=== PATIENT | male | born 1955 | race Caucasian/White ===

== ENCOUNTER 2018-06-17 11:32 | Emergency (ER) | payer MEDICARE, OTHER ==
[~2018-06-17] VITALS: Ht 180.3 cm; Wt 125.0 kg
[2018-06-17] MEDS ORDERED: LEVOTHYROXIN75 MCG PO (12:28)
[2018-06-17] MEDS ORDERED: LISINOPRIL10 MG PO (12:28)
[2018-06-17] MEDS ORDERED: ATENOLOL25 MG PO (12:29)
[2018-06-17] MEDS ORDERED: SERTRALINE50 MG PO (12:29)
[2018-06-17 13:10] VITALS: BP 147/80
== END 2018-06-17 13:11 | disposition home or self-care (01) ==
LOC: ED 11:32
DX: S06.0X0A Concussion without loss of consciousness, initial encounter (principal); R11.10 Vomiting, unspecified; R51 Headache; R61 Generalized hyperhidrosis; W11.XXXA Fall on and from ladder, initial encounter; Y93.H9 Activity, other involving exterior property and land maintenance, building and construction; Y92.008 Other place in unspecified non-institutional (private) residence as the place of occurrence of the external cause